=== PATIENT | female | born 1940 | race Caucasian/White ===

== ENCOUNTER 2023-07-19 08:22 | Outpatient (AMB) | payer MEDICARE, SELFPAY ==
--- NOTE | 2023-07-18 14:30 | A.OFFVIS_ITS ---
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
--- NOTE | 2023-07-18 14:30 | MHC.OFFVIS ---
Intake Intake Visit Reasons: E-EXHIBITION ORGANISER: Auditory and visual hallucinations-confirmed Allergies No Known Allergies Allergy (Verified 07/18/23 14:30) Coding
--- NOTE | 2023-07-19 08:23 | MHC.OFFVIS ---
Intake Vital Signs 07/19/23 08:24 Height 5 ft 5 in Weight 149 lb 4 oz BMI 24.8 BP 134/70 Blood Pressure Location Lt brachial Position Sitting Respiration 16 Pulse 72 Pulse Source Pulse Oximeter Pulse Oximetry (%) 94 Oxygen Delivery Method Room Air Intake Visit Reasons: E-SOCIAL INSURANCE ADVISER: Auditory and visual hallucinations-confirmed Intake Note: Pt presents to the office for a new pt evaluation for hallucinations. She is here with her daughter, Carmen. Daughter reports she has been having hallucinations and hearing music in my ears for about 8 months now. The daughter states her hallucinations started after a UTI and haven't fully resolved. Allergies No Known Allergies Allergy (Verified 07/19/23 08:24) Medication List - Last Reconciled 07/19/23 by Ivonne Sorensen MD acetaminophen 500 mg PO QID PRN amiodarone 200 mg PO DAILY amlodipine (Norvasc) 5 mg PO DAILY aspirin 81 mg PO DAILY atorvastatin 20 mg PO BEDTIME clobetasol 0.05% (Temovate) 1 appl topical BEDTIME gabapentin 300 mg PO DAILY HPI HPI Comments History of Present Illness Details 83y/o female comes here for evaluation of visual and auditory hallucinations. she is accompanied by her daughter Carmen. About 6 mths ago she started having visual hallucinations and auditory hallucinations. she was seeing people outside, visions of her son trying to choke her, seeing her daughter trying to shoot her, people trying to steal her car - mostly at night and evenings. she did not have insight into the hallucinations. she also heard music in her left ear. she was diagnosed with UTI and once she was treated her hallucinations decreased . Now she has rare hallucinations- once in 2 weeks she may see a cat or a flag etc. she has short term memory issues for over 1 year. Her mother had ALzheimers and thinks it is hereditary. she has word finding difficulty. she repeats questions. she forgets to turn off the TV or coffee pot etc. she lives with her daughter. she does not drive . she has trouble turning her head due to arthritis . she makes noises - almost like talking sleep and she also yells out when sleeping.Her daughter helps with some ADLS. [facility] Medical History (Updated 07/19/23 @ 16:12 by Iovnne Sorensen MD) Hallucinations Cognitive disorder Hyperlipidemia Diverticulosis Pulmonary nodules GERD (gastroesophageal reflux disease) Abdominal aortic aneurysm Dizziness Folic acid deficiency Aortic valve stenosis CVA (cerebral vascular accident) B12 deficiency Chronic headaches ICH (intracerebral hemorrhage) Breast cancer CAD (coronary artery disease) Mediastinal lymphadenopathy COPD (chronic obstructive pulmonary disease) Atrial fibrillation Nocturnal hypoxia Pulmonary fibrosis Heart block HTN (hypertension) Hypothyroidism Lichen planus Pacemaker Surgical History (Updated 07/19/23 @ 08:33 by Beverly Marquez CMA) H/O shoulder surgery H/O total hysterectomy History of open heart surgery Hx of cholecystectomy History of appendectomy Family History (Updated 07/19/23 @ 08:34 by Beverly Marquez CMA) Mother No problems noted. Brother No problems noted. Sister No problems noted. Social History (Updated 07/19/23 @ 08:35 by Beverly Marquez CMA) Household Members: None Housing: House Alcohol intake: current Patient Tobacco Use Status: Former Tobacco user Tobacco use type: Cigarette Physical Exam Vital Signs: Last Vital Signs Pulse 72 07/19/23 08:24 Resp 16 07/19/23 08:24 BP 134/70 07/19/23 08:24 Pulse Ox 94 07/19/23 08:24 Oxygen Delivery Method Room Air 07/19/23 08:24 BMI result Body Mass Index 24.8 Const General: cooperative, healthy appearing, comfortable and anxious Nutritional Appearance: average body habitus Orientation/consciousness: patient oriented x3 Eyes Pupils: Equal, round and reactive pupils present Neuro General: patient oriented x3, tone normal and moves all extremities Cranial nerves: Yes Equal, round and reactive pupils present, Yes Bilaterally intact EOM present, Yes Nystagmus not present, Yes Normal facial strength present, Yes Midline tongue present, Yes Symmetric palate elevation present and Yes Ability to bilaterally elevate shoulders present Cognition (Neuro): normal cognition Coordination: [id number] test normal Orientation What is the (year) (season) (date) (day) (month)?: year, season, date, day and month Where are we (state) (county) (town or city) (hospital) (floor)?: state, county, town or city, hospital/clinic and floor Registration Name of 3 unrelated objects clearly and slowly, then ask patient to repeat all 3 of them. (1st repeat determines score. Make sure they can repeat all three): object 1, object 2 and object 3 Attention & Calculation (CHOOSE ONE) Spell WORLD backwards (DLROW): 5 letters Recall Ask patient to repeat the 3 items from question #3.: object 1 Language Show patient a wristwatch & ask what it is. Repeat for pencil.: watch and pencil Ask the patient to repeat the phrase 'No ifs, ands, or buts' after you.: correct Ask the patient to 'take a piece of paper with their right hand' 'fold paper in half' 'place paper on floor': take paper in right hand and place paper on floor Print the sentence 'CLOSE YOUR EYES' on a piece. If patient actually closes eyes then score.: followed written direction Score Score: 25 Assessment & Plan Assessment & Plan (1) Cognitive disorder: Code(s): F09 - Unspecified mental disorder due to known physiological condition (2) Hallucinations: Code(s): R44.3 - Hallucinations, unspecified Plan SHe did well on MMSE She was anxious throughout this evaluation I will check him with CT brain Labs-ESR Vit B 12 TSH CMP CBC I will trial her on Buspar 5 mg bid Orders: Orders Erythrocyte Sedimentation Rate Today F09 - Unspecified mental disorder due to known physiological condition Complete Blood Count Auto Diff Today F09 - Unspecified mental disorder due to known physiological condition CT head/brain wo IV con Today R41.3 - Other amnesia Vitamin B12 and Folate Today F09 - Unspecified mental disorder due to known physiological condition TSH reflex Free T4 Today F09 - Unspecified mental disorder due to known physiological condition Comprehensive Met. Panel Today F09 - Unspecified mental disorder due to known physiological condition Medications: New buspirone 5 mg PO BID 60 tabs 3RF Coding Level of Care Code New Pt Level 4 (69983) Diagnoses Cognitive disorder F09 Hallucinations R44.3
[2023-07-19 08:24] VITALS: BP 134/70; PULSE 72; RESP 16; O2SAT 94; BMI 24.8
== END 2023-07-19 09:20 | disposition home or self-care (01) ==
PROVIDERS: PCP Internal Medicine; Visit Provider Psychiatry & Neurology Neurology
DX: R41.89 Other symptoms and signs involving cognitive functions and awareness (principal); R44.0 Auditory hallucinations; R44.1 Visual hallucinations
CPT/HCPCS: 99204

== ENCOUNTER → 2023-07-19 08:22 | Outpatient (BNVA) | payer MEDICARE, SELFPAY | PROVIDERS: PCP Internal Medicine; Visit Provider Psychiatry & Neurology Neurology | DX: F09 Unspecified mental disorder due to known physiological condition (principal); R44.3 Hallucinations, unspecified | CPT/HCPCS: 99202 ==

== ENCOUNTER 2024-01-17 07:31 | Outpatient (AMB) | payer MEDICARE, SELFPAY ==
--- NOTE | 2024-01-17 07:42 | MHC.OFFVIS ---
Vital Signs 01/17/24 07:43 Height 5 ft 5 in BP 88/58 L Blood Pressure Location Lt brachial Position Sitting Respiration 16 Pulse 78 Pulse Source Palpation Intake Visit Reasons: 6m f/u Auditory and -CONF Intake Note: Pt presents for 5 month follow up for cognitive disorder. Post Commander Required: No Allergies No Known Allergies Allergy (Verified 01/17/24 07:43) Medication List - Last Reconciled 01/17/24 by Ivonne Sorensen MD acetaminophen 500 mg PO QID PRN amiodarone 200 mg PO DAILY amlodipine (Norvasc) 5 mg PO DAILY aspirin 81 mg PO DAILY atorvastatin 20 mg PO BEDTIME buspirone 10 mg PO BID clobetasol 0.05% (Temovate) 1 appl topical BEDTIME docusate sodium (Stool Softener) 50 mg PO DAILY gabapentin 300 mg PO DAILY mecobalamin (vitamin B12) (B12 Active) 1,000 mcg PO DAILY oxycodone 5 mg PO BID PRN HPI Comments Details: 83y/o female comes here follow up of visual and auditory hallucinations. she is accompanied by her daughter Carmen. Her hallucinations have resolved- usually recurs when she has UTI. But her daughter reports strange behavior- put the blanket in the floor , says for people form cruise ship to walk .she seems more confused. she was recently diagnosed with Lung ca and she is starting immunotherapy. she has short term memory issues for over 1 year. Her mother had ALzheimers and thinks it is hereditary. she has word finding difficulty. she repeats questions. she forgets to turn off the TV or coffee pot etc. she lives with her daughter. she does not drive . she has trouble turning her head due to arthritis . she makes noises - almost like talking sleep and she also yells out when sleeping.Her daughter helps with some ADLS. [facility] Medical History Hallucinations Cognitive disorder Hyperlipidemia Diverticulosis Pulmonary nodules GERD (gastroesophageal reflux disease) Abdominal aortic aneurysm Dizziness Folic acid deficiency Aortic valve stenosis CVA (cerebral vascular accident) B12 deficiency Chronic headaches ICH (intracerebral hemorrhage) Breast cancer CAD (coronary artery disease) Mediastinal lymphadenopathy COPD (chronic obstructive pulmonary disease) Atrial fibrillation Nocturnal hypoxia Pulmonary fibrosis Heart block HTN (hypertension) Hypothyroidism Lichen planus Pacemaker Surgical History H/O shoulder surgery H/O total hysterectomy History of open heart surgery Hx of cholecystectomy History of appendectomy Family History Mother No problems noted. Brother No problems noted. Sister No problems noted. Social History Household Members: None Housing: House Alcohol intake: current Patient Tobacco Use Status: Former Tobacco user Tobacco use type: Cigarette Physical Exam Vital Signs: Last Vital Signs Pulse 78 01/17/24 07:43 Resp 16 01/17/24 07:43 BP 88/58 L 01/17/24 07:43 Const General: cooperative, healthy appearing, comfortable and anxious Nutritional Appearance: average body habitus Orientation/consciousness: patient oriented x3 Eyes Pupils: Equal, round and reactive pupils present Neuro Other: MOCA General: patient oriented x3, tone normal and moves all extremities Cranial nerves: Yes Equal, round and reactive pupils present, Yes Bilaterally intact EOM present, Yes Nystagmus not present, Yes Normal facial strength present, Yes Midline tongue present, Yes Symmetric palate elevation present and Yes Ability to bilaterally elevate shoulders present Cognition (Neuro): normal cognition Coordination: [id number] test normal Assessment & Plan Assessment & Plan (1) Cognitive disorder: Comment: MCI vs early dementia MOCA Code(s): F09 - Unspecified mental disorder due to known physiological condition Category: Medical (2) Hallucinations: Code(s): R44.3 - Hallucinations, unspecified Category: Medical Plan SHe did well on MMSE She was anxious throughout this evaluation Vit B 12 supplementation - declines injection I will trial her on Buspar 1- mg bid Declines meds for cognition Medications: New mecobalamin (vitamin B12) (B12 Active) 1,000 mcg PO DAILY 30 tabs 6RF Changed From buspirone 5 mg PO BID 60 tabs 3RF To buspirone 10 mg PO BID 180 tabs 3RF Coding Level of Care Code Est Pt Level 4 (88241) Diagnoses Cognitive disorder F09 Hallucinations R44.3
[2024-01-17 07:43] VITALS: BP 88/58; PULSE 78; RESP 16
== END 2024-01-17 09:38 | disposition home or self-care (01) ==
PROVIDERS: PCP Internal Medicine; Visit Provider Psychiatry & Neurology Neurology
DX: R41.89 Other symptoms and signs involving cognitive functions and awareness (principal); R44.3 Hallucinations, unspecified
CPT/HCPCS: 99214

== ENCOUNTER → 2024-01-17 07:31 | Outpatient (BNVA) | payer MEDICARE, SELFPAY | PROVIDERS: PCP Internal Medicine; Visit Provider Psychiatry & Neurology Neurology | DX: R41.3 Other amnesia (principal); R44.3 Hallucinations, unspecified; F09 Unspecified mental disorder due to known physiological condition | CPT/HCPCS: 99212 ==

== ENCOUNTER 2024-09-20 13:54 | Outpatient (AMB) | payer MEDICARE, SELFPAY ==
--- NOTE | 2024-09-20 14:08 | A.OFFVIS_ITS ---
Vital Signs 09/20/24 14:09 Height 5 ft 5 in Weight 120 lb BMI 20.0 BP 84/64 L Blood Pressure Location Rt brachial Position Sitting Intake Visit Reasons: Follow up Intake Note: Patient presents for follow up Allergies No Known Allergies Allergy (Verified 09/20/24 14:20) Medication List - Last Reconciled 09/20/24 by Ivonne Sorensen MD acetaminophen 500 mg PO QID PRN amiodarone 200 mg PO DAILY amlodipine (Norvasc) 5 mg PO DAILY aspirin 81 mg PO DAILY atorvastatin 20 mg PO BEDTIME buspirone 10 mg PO BID clobetasol 0.05% (Temovate) 1 appl topical BEDTIME docusate sodium (Stool Softener) 50 mg PO DAILY gabapentin 300 mg PO DAILY mecobalamin (vitamin B12) (B12 Active) 1,000 mcg PO DAILY oxycodone 5 mg PO BID PRN HPI Comments Details: 84y/o female comes here follow up of visual and auditory hallucinations. she is accompanied by her daughter Carmen. she was recently diagnosed with Lung ca and she is on immunotherapy.Her cognitive issues are mildly worse with immunotherapy.she has hallucinations and delusions - says there are guys making out in the back of a car . she use dto visit her neighbors but went to the wrong house.she is also sundowning. she has short term memory issues for over 2 yeas. Her mother had ALzheimers and thinks it is hereditary. she has word finding difficulty. she repeats questions. she forgets to turn off the TV or coffee pot etc. she lives with her daughter. she does not drive . she has trouble turning her head due to arthritis . she also yells out when sleeping.Her daughter helps with some ADLS. [facility] Medical History (Updated 09/20/24 @ 14:35 by Ivonne Sorensen MD) Delusions Hallucinations Cognitive disorder Hyperlipidemia Diverticulosis Pulmonary nodules GERD (gastroesophageal reflux disease) Abdominal aortic aneurysm Dizziness Folic acid deficiency Aortic valve stenosis CVA (cerebral vascular accident) B12 deficiency Chronic headaches ICH (intracerebral hemorrhage) Breast cancer CAD (coronary artery disease) Mediastinal lymphadenopathy COPD (chronic obstructive pulmonary disease) Atrial fibrillation Nocturnal hypoxia Pulmonary fibrosis Heart block HTN (hypertension) Hypothyroidism Lichen planus Pacemaker Surgical History H/O shoulder surgery H/O total hysterectomy History of open heart surgery Hx of cholecystectomy History of appendectomy Family History Mother No problems noted. Brother No problems noted. Sister No problems noted. Social History Household Members: None Housing: House Alcohol intake: current Patient Tobacco Use Status: Former Tobacco user Tobacco use type: Cigarette Physical Exam Vital Signs: Last Vital Signs BP 84/64 L 09/20/24 14:09 BMI result Body Mass Index 20.0 Const General: cooperative, healthy appearing, comfortable and anxious Nutritional Appearance: average body habitus Orientation/consciousness: patient oriented x3 Eyes Pupils: Equal, round and reactive pupils present Neuro General: patient oriented x3, tone normal and moves all extremities Cranial nerves: Yes Equal, round and reactive pupils present, Yes Bilaterally intact EOM present, Yes Nystagmus not present, Yes Normal facial strength present, Yes Midline tongue present, Yes Symmetric palate elevation present and Yes Ability to bilaterally elevate shoulders present Cognition (Neuro): abnormal cognition Coordination: [id number] test normal Psych Speech and movement: Pressured speech present and Psychomotor agitation in speech present Assessment & Plan Assessment & Plan (1) Cognitive disorder: Comment: dementia MOCA Code(s): F09 - Unspecified mental disorder due to known physiological condition Category: Medical (2) Hallucinations: Code(s): R44.3 - Hallucinations, unspecified Category: Medical (3) Delusions: Code(s): F22 - Delusional disorders Category: Medical Plan She was anxious throughout this evaluation Vit B 12 supplementation - declines injection I will trial her on memantine XR 7 mg qd Medications: New memantine 7 mg PO DAILY 30 ea 0RF Coding Level of Care Code Est Pt Level 4 (81779) Complex EM visit Add On G2211 Diagnoses Cognitive disorder F09 Hallucinations R44.3 Delusions F22
[2024-09-20 14:09] VITALS: BP 84/64
--- OUTSIDE RECORDS SUMMARY | 2024-09-20 15:25 | XMS_ITS ---
Author Name [facility] Organization Unknown History of Medication Use Medication Directions Dispensed Refills Start Date End Date Stat HYDROmorphone (DILAUDID) injection 0.2 mg 0.2 mg, Intravenous, Every 15 min PRN, moderate pain (4-6), Starting on [place] 11/16/23 at 1556, PACU/Phase 1FOR PACU USE ONLY.??If unable to take by mouth.??Do not exceed 2 mg.?? 11/19/2023 active Miconazole Nitrate 2 % AERP Used 2% powder twice a day for 10 days and as needed 11/19/2023 active gabapentin (NEURONTIN) 300 MG capsule TAKE ONE CAPSULE BY MOUTH TWICE DAILY 11/19/2023 active HYDROmorphone (DILAUDID) injection 0.5 mg 0.5 mg, Intravenous, Every 15 min PRN, severe pain (7-10), Starting on [place] 11/16/23 at 1556, PACU/Phase 1FOR PACU USE ONLY.??If unable to take by mouth.??Do not exceed 2 mg.?Administer IV push over 2-3 minutes. 11/19/2023 active atorvastatin (LIPITOR) tablet 10 mg Take 2 tablets (20 mg total) by mouth every evening. 11/19/2023 active amLODIPine (NORVASC) tablet 5 mg Take 1 tablet (5 mg total) by mouth daily. 11/19/2023 active HYDROmorphone (DILAUDID) injection 0.5 mg 0.5 mg, Intravenous, Every 15 min PRN, severe pain (7-10), Starting on [place] 11/16/23 at 1556, PACU/Phase 1FOR PACU USE ONLY.??If unable to take by mouth.??Do not exceed 2 mg.?Administer IV push over 2-3 minutes. 11/19/2023 active meperidine (DEMEROL) 25 MG/ML injection 12.5 mg 12.5 mg, Intravenous, Every 30 min PRN, shivering not due to postoperative hypothermia., Starting on [place] 11/16/23 at 1556, For 2 doses, PACU/Phase 1May repeat x 1 in 30 minutes. 11/19/2023 active dexamethasone (DECADRON) injection 4 mg 4 mg, Intravenous, Once as needed, other, nausea, vomiting, Starting on [place] 11/16/23 at 1556, For 1 dose, PACU/Phase 1Administer 2nd unless given in the OR if zofran is ineffective and patient continues to be symptomatic. 11/19/2023 active oxyCODONE (ROXICODONE) 5 MG immediate release tablet 5 mg 5 mg, Oral, Every 4 hours PRN, moderate pain (4-6), achieve pain scale less than or equal to 4, Starting on [place] 11/16/23 at 1556, For 2 doses, PACU/Phase 1Give when patient is able to take PO. 11/19/2023 active isosorbide dinitrate (ISORDIL) 30 MG tablet Take 2 tablets (60 mg total) by mouth 4 (four) times a day. 11/19/2023 active busPIRone (BUSPAR) 5 MG tablet Take 1 tablet (5 mg total) by mouth 3 (three) times a day. 11/19/2023 active ondansetron (ZOFRAN) injection 4 mg 4 mg, Intravenous, Once as needed, nausea, vomiting, Starting on [place] 11/16/23 at 1556, For 1 dose, PACU/Phase 1Administer 1st unless given in OR, then administer dexamethasone 11/19/2023 active losartan (COZAAR) tablet 25 mg Take 1 tablet (25 mg total) by mouth daily. 11/19/2023 active Cholecalciferol (vitamin D3) 10 MCG (400 UNIT) TABS Take by mouth. 11/19/2023 activ e Problems Problem Status Onset Date Problem Type Date of Resoluti on Source Lung nodules active 2023-10-30 ProblemAct [facility] Pain active EncounterDiagnosisAct CTTHSFRAN
== END 2024-09-20 14:40 | disposition home or self-care (01) ==
PROVIDERS: PCP Internal Medicine; Visit Provider Psychiatry & Neurology Neurology
DX: F22 Delusional disorders (principal); G31.84 Mild cognitive impairment of uncertain or unknown etiology
CPT/HCPCS: 99214; G2211

== ENCOUNTER → 2024-09-20 13:54 | Outpatient (BNVA) | payer MEDICARE, SELFPAY | PROVIDERS: PCP Internal Medicine; Visit Provider Psychiatry & Neurology Neurology | DX: F09 Unspecified mental disorder due to known physiological condition (principal); R44.3 Hallucinations, unspecified; F22 Delusional disorders | CPT/HCPCS: 99212 ==

== ENCOUNTER 2025-03-24 08:24 | Outpatient (AMB) | payer MEDICARE, SELFPAY ==
[2025-03-24 08:26] VITALS: BP 122/84; PULSE 82; O2SAT 98; BMI 21.0
--- NOTE | 2025-03-24 08:26 | MHC.OFFVIS ---
Vital Signs 03/24/25 08:26 Height 5 ft 5 in Weight 126 lb BMI 21.0 BP 122/84 Blood Pressure Location Rt brachial Position Sitting Pulse 82 Pulse Source Pulse Oximeter Pulse Oximetry (%) 98 Oxygen Delivery Method Room Air Intake Visit Reasons: Follow up Intake Note: Patient following up med trial memantine Allergies No Known Allergies Allergy (Verified 03/24/25 08:31) Medication List - Last Reconciled 03/24/25 by Ivonne Sorensen MD acetaminophen 500 mg PO QID PRN amiodarone 200 mg PO DAILY amlodipine (Norvasc) 5 mg PO DAILY aspirin 81 mg PO DAILY atorvastatin 20 mg PO BEDTIME buspirone 10 mg PO BID gabapentin 300 mg PO DAILY gabapentin 300 mg PO BID mecobalamin (vitamin B12) (B12 Active) 1,000 mcg PO DAILY memantine 14 mg PO DAILY HPI Comments Details: 84y/o female comes here follow up of visual and auditory hallucinations. she is accompanied by her daughter Carmen. Her cognitive issues are worse and has hallucinations and delusions - says there are guys making out in the back of a car she is more confused at night and has behavior issues. she is unable to sleep at night and can get aggressive with her daugter.she refuses help from senior services she has short term memory issues for over 3 yeas. Her mother had ALzheimers and thinks it is hereditary. she has word finding difficulty. she repeats questions. she forgets to turn off the TV or coffee pot etc. she lives with her daughter. she does not drive . she has trouble turning her head due to arthritis . she also yells out when sleeping.Her daughter helps with some ADLS. [facility] Medical History (Updated 03/24/25 @ 10:14 by Ivonne Sorensen MD) Alzheimer's dementia Delusions Hallucinations Cognitive disorder Hyperlipidemia Diverticulosis Pulmonary nodules GERD (gastroesophageal reflux disease) Abdominal aortic aneurysm Dizziness Folic acid deficiency Aortic valve stenosis CVA (cerebral vascular accident) B12 deficiency Chronic headaches ICH (intracerebral hemorrhage) Breast cancer CAD (coronary artery disease) Mediastinal lymphadenopathy COPD (chronic obstructive pulmonary disease) Atrial fibrillation Nocturnal hypoxia Pulmonary fibrosis Heart block HTN (hypertension) Hypothyroidism Lichen planus Pacemaker Surgical History H/O shoulder surgery H/O total hysterectomy History of open heart surgery Hx of cholecystectomy History of appendectomy Family History Mother No problems noted. Brother No problems noted. Sister No problems noted. Social History Household Members: None Housing: House Alcohol intake: current Patient Tobacco Use Status: Former Tobacco user Tobacco use type: Cigarette Physical Exam Vital Signs: Last Vital Signs Pulse 82 03/24/25 08:26 BP 122/84 03/24/25 08:26 Pulse Ox 98 03/24/25 08:26 Oxygen Delivery Method Room Air 03/24/25 08:26 BMI result Body Mass Index 21.0 Const General: cooperative, healthy appearing, comfortable and anxious Nutritional Appearance: average body habitus Orientation/consciousness: patient oriented x3 Eyes Pupils: Equal, round and reactive pupils present Neuro General: patient oriented x3, tone normal and moves all extremities Cranial nerves: Yes Equal, round and reactive pupils present, Yes Bilaterally intact EOM present, Yes Nystagmus not present, Yes Normal facial strength present, Yes Midline tongue present, Yes Symmetric palate elevation present and Yes Ability to bilaterally elevate shoulders present Cognition (Neuro): abnormal cognition Coordination: [id number] test normal Psych Speech and movement: Pressured speech present and Psychomotor agitation in speech present Assessment & Plan Assessment & Plan (1) Alzheimer's dementia: Code(s): G30.9 - Alzheimer's disease, unspecified; F02.80 - Dementia in other diseases classified elsewhere, unspecified severity, without behavioral disturbance, psychotic disturbance, mood disturbance, and anxiety Category: Medical (2) Hallucinations: Code(s): R44.3 - Hallucinations, unspecified Category: Medical (3) Delusions: Code(s): F22 - Delusional disorders Category: Medical Plan She was anxious throughout this evaluation Vit B 12 supplementation - declines injection Increase memantine XR 14 mg qd Increase gabapentin 300mg qam and 600mg qhs will consider quetiapine. Medications: New gabapentin 1 cap qam and 2 caps qhs 300 mg PO BID 90 caps 6RF Changed From memantine 7 mg PO DAILY 30 caps 0RF To memantine 14 mg PO DAILY 30 caps 6RF Coding Level of Care Code Est Pt Level 4 (19393) Diagnoses Alzheimer's dementia G30.9; F02.80 Hallucinations R44.3 Delusions F22
--- OUTSIDE RECORDS SUMMARY | 2025-03-24 08:34 | XMS_ITS ---
Author Organization [facility] Care Team Providers Care Partner Management Consultant Name Role Phone Jennifer Corrales Unavailable Unavailable [place], Steph Unavailable Unavailable Patricia Dennis Unavailable Unavailab Yuri Kauffman Unavailable Unavailable Abby, Williams Unavailable Unavailable Larry Buck Unavailable Unavailable Bonnie, Sobia Unavailable Unavailable Obdulio, Viktoria Unavailable Unavailable Melonie Parham Unavailable Unavailable Helder Chavarria Unavailable Unavailable Modesta, Eunice Unavailable Unavailable Nasser, Zidoon Unavailable Unavailable Allergies and adverse reactions Code CodeSystem Substance Reaction Severity StartDate Concern Status Pepper Unknown 05/09/2022 active Onion Unknown 05/09/2022 active Care Team Name Role Address Phone Organization [facility] Obdulio PCP [address], [place], [address], [place] (Office): [facility] 05/09/2022 - 05/19/2022 Jennifer Corrales [address], [place], [address], [place] (Office[place] : [facility] 05/09/2022 - 05/19/2022 Steph Severino [address] [facility] [address] [facility], [place], [address], [facility] (Office): [facility] 05/09/2022 - 05/19/2022 Patricia Dennis [address] [facility] [address] [facility], [place], [address], [facility] (Office): : [facility] 05/09/2022 - 05/19/2022 Yuri Ballard [address] [facility] [address] [facility], [place], [address], [place] (Office): [facility] 05/09/2022 - 05/19/2022 Williams Mora [address] [place], [address], [facility] (Office): : [facility] 05/09/2022 - 05/19/2022 Larry Buck [address] [place] [address] [address] [facility], [place], [address], [place] (Office): [facility] 05/09/2022 - 05/19/2022 Sobia Nicole [address] [place] [address], [address], [facility] (Office): : [facility] 05/09/2022 - 05/19/2022 Melonie Parham [address] [place] [address] [address] [facility], [place], [address], [place] (Office): [facility] 05/09/2022 - 05/19/2022 Helder Chavarria [address] [facility] [address], [place], [address], [place] (Office): [facility] 05/09/2022 - 05/19/2022 Eunice Byers [address] [place] [address] [address] [facility], [place], [address], [place] (Office): [facility] 05/09/2022 - 05/19/2022 Antonia Camara [address] [place] [address], [place], [address], [place] (Office): : [facility] 05/09/2022 - 05/19/2022 Immunizations Immunization Status Vaccine Details Vaccine Code CodeSystem Date Notes Influenza completed Influenza, split virus, trivalent, injectable, contains preservative 141 CVX created date: 05/10/2022 administer ed date: 06/03/2010 Pneumococcal Conjugate Vaccine (PCV13) completed pneumococcal conjugate vaccine, 13 valent 133 CVX created date: 05/10/2022 administer ed date: 05/10/2016 Pneumococcal Polysaccharide Vaccine (PPSV23) completed pneumococcal polysaccharide vaccine, 23 valent 33 CVX created date: 05/10/2022 administer ed date: 04/15/2008 TDAP( Tetanus/Diptheria/ Perutssis) completed tetanus and diphtheria toxoids, adsorbed, preservative free, for adult use, Lf unspecified 196 CVX created date: 05/10/2022 administer ed date: 05/05/2009 SARS-COV-2 (COVID-19) completed SARS-COV-2 (COVID-19) vaccine, vector non-replicating, recombinant spike protein-Ad26, preservative free, 0.5 mL lotNumber: [id number] Given 0.5 ml Left Deltoid intramuscularly Step 1 of Multi-step 212 CVX created date: 05/10/2022 administer ed date: 12/27/2020 SARS-COV-2 (COVID-19 BOOSTER) completed SARS-COV-2 (COVID-19) vaccine, vector non-replicating, recombinant spike protein-Ad26, preservative free, 0.5 mL lotNumber: [id number] Given 0.5 ml Left Deltoid intramuscularly 212 CVX created date: 05/10/2022 administer ed date: 10/10/2021 Medications Section Medication Name Status Code CodeSystem Dose Route Frequency Admin Type Sig Text Start Date End Date Fleet Enema Enema 7-19 GM/118ML active 030764 RXNORM 1 unit Rectal as needed PRN Insert 1 unit rectal ly every 24 hours as needed for Consti pation Use only if Bisaco dyl Suppos itory is ineffe ctive 2021 - Senna Tablet 8.6 MG active 087851 RXNORM 1 tablet Oral as needed PRN Give 1 tablet by mouth every 24 hours as needed for consti pation 2021 - Acetaminophen Tablet 325 MG active 150823 RXNORM 2 tablet Oral as needed PRN Give 2 tablet by mouth every 6 hours as needed for Pain Do not exceed 3 grams in 24 hours. T otal 650 mg AND Give 2 tablet by mouth every 6 hours as needed for Elevat ed temp >101 Do not exceed 3 grams in 24 hours. T otal 650 mg 2021 - 372806 RXNORM 2 tablet Oral as needed PRN Give 2 tablet by mouth every 6 hours as needed for Pain Do not exceed 3 grams in 24 hours. T otal 650 mg AND Give 2 tablet by mouth every 6 hours as needed for Elevat ed temp >101 Do not exceed 3 grams in 24 hours. T otal 650 mg 2021 - Cephalexin Tablet 500 MG active 294147 RXNORM 1 tablet Oral four times a day Routine Give 1 tablet by mouth four times a day for UTI 2021 - Nystatin Powder 769798 UNIT/GM active 386962 RXNORM n/a n/a Topical in the morning Routine Apply to Left breast topica lly in the mornin g for rash 2021 - Lipitor Tablet 20 MG active 979624 RXNORM 1 tablet Oral at bedtime Routine Give 1 tablet by mouth at bedtim e for hld 2021 - Aspirin Tablet Chewable 81 MG active 597875 RXNORM 1 tablet Oral one time a day Routine Give 1 tablet by mouth one time a day for cad 2021 - Gabapentin Capsule 300 MG active 748963 RXNORM 1 capsul e Oral two times a day Routine Give 1 capsul e by mouth two times a day for pain 2021 - Norvasc Tablet 5 MG active 389253 RXNORM 1 tablet Oral one time a day Routine Give 1 tablet by mouth one time a day for htn 2021 - Amiodarone HCl Tablet 200 MG active 668649 RXNORM 1 tablet Oral one time a day Routine Give 1 tablet by mouth one time a day for [place] 2021 - Mental Status Section Date Assessment Total Score Description 05/19/2022 BIMS 13 cognitively int act CAM 0 No delirium ind icated PHQ-9 12 moderate depres yesica 05/16/2022 BIMS 13 cognitively int act CAM 0 No delirium ind icated PHQ-9 12 moderate depres yesica Problems Problem # Description Date of onset Resolved Date Code CodeSystem Concern Status 1 ATHEROSCLEROTIC HEART DISEASE OF [place] CORONARY ARTERY WITHOUT ANGINA PECTORIS 05/09/[address] active 2 CHRONIC OBSTRUCTIVE PULMONARY DISEASE, UNSPECIFIED 05/09/[address] active 3 CHRONIC OBSTRUCTIVE PYELONEPHRITIS 05/09/[address] active 4 COVID-19 05/09/[address] active 5 DIFFICULTY IN WALKING, NOT ELSEWHERE CLASSIFIED 05/09/[address] active 6 ESSENTIAL (PRIMARY) HYPERTENSION 05/09/[address] active 7 GASTRO-ESOPHAGEAL REFLUX DISEASE WITHOUT ESOPHAGITIS 05/09/[address] active 8 HEMIPLEGIA AND HEMIPARESIS FOLLOWING CEREBRAL INFARCTION AFFECTING RIGHT DOMINANT SIDE 05/09/[address] active 9 HYPERLIPIDEMIA, UNSPECIFIED 05/09/[address] active 10 HYPOTHYROIDISM, UNSPECIFIED 05/09/[address] active 11 MUSCLE WEAKNESS (GENERALIZED) 05/09/[address] active 12 PERSONAL HISTORY OF TRANSIENT ISCHEMIC ATTACK (TIA), AND CEREBRAL INFARCTION WITHOUT RESIDUAL DEFICITS 05/09/[address] active 13 PNEUMONIA, UNSPECIFIED ORGANISM 05/09/[address] active 14 PRESENCE OF CARDIAC PACEMAKER 05/09/[address] active 15 UNSPECIFIED ATRIAL FIBRILLATION 05/09/[address] active 16 UNSTEADINESS ON FEET 05/09/[address] active 17 URINARY TRACT INFECTION, SITE NOT SPECIFIED 05/09/[address] active Reason for Referral No Reasons for Referral Entered Social History Social History Observation Description Start Date End Date Code Code System Current Smoking Status Tobacco smoking consumption unknown 014974393 SNOMED CT Sex Assigned At Female 1940 39128-6 [facility] Gender Identity Vital Signs Code Code System Vitals Name Values and Units Timing Information 9279-1 [facility] Respiratory Rate Value=18.0 Units=/m in 05/19/2022 8462-4 [facility] Blood Pressure-Diastolic Value=78 Un its=mmHg 05/19/2022 8480-6 [facility] Blood Pressure-Systolic Efxey=286 Un its=mmHg 05/19/2022 8310-5 [facility] Body Temperature Value=97.6 Units= F 05/19/2022 8867-4 [facility] Heart rate Value=68.0 Units=/min 09/2021 90871-3 [facility] O2 % BldC Oximetry Value=97.0 Units= % 05/19/2022 62045-1 [facility] Pain Level Value=1.0 05/19/2022 77576-2 [facility] Weight Yfkdt=188.0 Units=Lbs 8302-2 [facility] Height Value=65.0 Units=Inches 05/10/2022
--- OUTSIDE RECORDS SUMMARY | 2025-03-24 08:34 | XMS_ITS | Encounter Summary ---
Author Organization [place] [address] Care Team Providers Care Fire Technology Instructor Name Role Phone Jennifer Narayanan MD Primary Care Provider [phone] Encounter Details Date Type Department Care Team ([facility] st Contact Info) Description 02/19/2025 Telephone Adult Medicine [address] [phone] Charlotte Reynolds, HÉCTOR Social History Tobacco Use Types Packs/Day Years Used Date Smoking Tobacco: Every Day Cigarettes Last attempted to quit: 07/20/2003 Smokeless Tobacco: Never Alcohol Use Standard Drinks/Week Comments Yes 0 (1 standard drink = 0.6 oz pur e alcohol) Housing Instability Answer Date Recorde d Are you worried that in the next 2 months you may not have stable housing? No 08/28/2024 Food Access & Nutrition Answer Date Rec orded Do you have access to a vari ety of food including fruits and vegetables? Yes 08/28/2024 Access to Healthcare Answer Date Record ed Within the last 3 months, ho w many times did you visit the emergency department for your medical care? 1 08/28/2024 Health Literacy Answer Date Recorded How often do you need to hav e someone help you when you read instructions, pamphlets, or other written material from your doctor or pharmacy? Often 08/28/2024 Caregiver: How often do you need to have someone help you when you read instructions, pamphlets, or other written material from your doctor or pharmacy? Not on file 08/28/2024 Financial Risk Answer Date Recorded How hard is it for you to pa y for the very basics like food, housing, medical care, and air conditioning / heating? Not very hard 08/28/2024 Transportation Answer Date Recorded Has the lack of transportati on kept you from meetings, work, or from getting things needed for daily living? No Has the lack of transportati on kept you from medical appointments or from getting medications? No 08/28/2024 Social Isolation Answer Date Recorded How often do you feel lonely or isolated from those around you? Unable to respond 08/28/2024 Food Risk Answer Date Recorded Within the past 12 months we worried whether our food would run out before we got money to buy more. Never true 08/28/2024 Within the past 12 months th e food we bought just didn't last and we didn't have money to get more. Never true 08/28/2024 Dependent Care Answer Date Recorded Do you need help finding or paying for care for your loved ones. For example, child development assistant or elderly care for an older adult? No 08/28/2024 Education Answer Date Recorded Do you think completing more education or training, like finishing a GED, going to college, or learning a trade, would be helpful for you? No 08/28/2024 Employment and Income Answer Date Recor ded During the last four weeks, have you been actively looking for work? No 08/28/2024 Living Situation Answer Date Recorded What is your living situation? 1 10/29/2023 Interpersonal Safety Answer Date Record ed Physical Abuse 11/06/2024 Verbal Abuse 11/06/2024 Comments Unknown Sex and Gender Information Value Date Recorded Sex Assigned at Female 10/10/2024 8:09 AM EST Legal Sex Female 11:34 PM EST Gender Identity Female 10/10/2024 8:09 AM EST Sexual Orientation Straight 02/19/2025 8: 51 AM EDT documented as of this encounter Functional Status * Are you deaf or do you have serious difficulty hearing? Answer Date of Assessment Author No 11/05/2024 7:21 PM Sary Arredondo RN * Are you blind or do you have serious difficulty seeing, even when wearing glasses? Answer Date of Assessment Author No 11/05/2024 7:21 PM Sary Arredondo RN * Do you have serious difficulty walking or climbing stairs? Answer Date of Assessment Author Yes 11/05/2024 7:21 PM Sary Arredondo RN * Do you have serious difficulty dressing or bathing? Answer Date of Assessment Author Yes 11/05/2024 7:21 PM Sary Arredondo RN * Because of a physical, mental, or emotional condition, do you have serious difficulty doing errandsalone such as visiting the doctor? Answer Date of Assessment Author Yes 11/05/2024 7:21 PM Sary Arredondo RN documented as of this encounter Mental Status * Because of a physical, mental, or emotional condition, do you have serious difficulty concentrating, remembering, or making decisions? (5 years old or older) Answer Entry Date Author No 11/05/2024 7:21 PM Sary Arredondo RN documented in this encounter Progress Notes * Charlotte Reynolds RN - 02/19/2025 11:48 AM EDT Called and spoke to pt's daughter, Marisol, and an appointment was made for her to be seen in the office tomorrow at 10:15 am. She is in agreement with this plan. documented in this encounter Plan of Treatment Upcoming Encounters Date Type Department Care Team (Late st Contact Info) Description 04/02/2025 9:[address] [facility] [address] [place] [address] 05/05/2025 8:40 AM EDT Consult Gastroenterology - [place] [address] [facility] [address] [place] [phone] Adri Brasher NP [address] [address] 06/24/2025 8:30 AM EDT Office Visit [facility] Hematology Oncology [address] [place] [address] Tyshawn Simmons MD [address] [place] [address] 01/22/2026 9:00 AM EDT Ancillary Procedure [facility] [address] [facility] [address] [place] [address] documented as of this encounter Visit Diagnoses Not on filedocumented in this encounter Additional Health Concerns Infection Onset Date Last Indicated Resolved Time 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
--- OUTSIDE RECORDS SUMMARY | 2025-03-24 08:34 | XMS_ITS | Encounter Summary ---
Author Organization [facility] Address [address] [place] [address] Care Team Providers Care Supervisor Residential Name Role Phone Jennifer Narayanan MD Primary Care Provider [phone] Encounter Details Date Type Department Care Team Description 01/08/2024 Social Work [facility] Oncology Services [address] [place] [address] Romina Trivedi [facility] Social History Tobacco Use Types Packs/Day Years Used Date Smoking Tobacco: Every Day Cigarettes Smokeless Tobacco: Never Alcohol Use Standard Drinks/Week Comments Yes 0 (1 standard drink = 0.6 oz pur e alcohol) rare Sex and Gender Information Value Date Recorded Sex Assigned at Female 11/14/2023 4:00 PM EST Gender Identity Not on file Sexual Orientation Not on file Job Start Date Occupation Industry Not on file Not on file Not on file documented as of this encounter Functional Status Functional Status Response Date of Assess ment Pt deaf or have serious difficulty hearing? No 11/16/2023 Pt blind or have difficulty seeing, even with gl asses? No 11/16/2023 documented as of this encounter Plan of Treatment Not on file documented as of this encounter Visit Diagnoses Not on filedocumented in this encounter Care Teams Supervisor Residential Relationship Specialty Start Date End Date Jennifer Narayanan MD PCP - General Internal Medicine 11/22/23 documented as of this encounter
--- OUTSIDE RECORDS SUMMARY | 2025-03-24 08:34 | XMS_ITS ---
Author Name [facility] Organization Unknown History of Medication Use Medication Directions Dispensed Refills Start Date End Date Stat us HYDROmorphone (DILAUDID) injection 0.2 mg 0.2 mg, Intravenous, Every 15 min PRN, moderate pain (4-6), Starting on [place] 11/16/23 at 1556, PACU/Phase 1FOR PACU USE ONLY. If unable to take by mouth. Do not exceed 2 mg. 11/16/2023 active meperidine (DEMEROL) 25 MG/ML injection 12.5 mg 12.5 mg, Intravenous, Every 30 min PRN, shivering not due to postoperative hypothermia., Starting on [place] 11/16/23 at 1556, For 2 doses, PACU/Phase 1May repeat x 1 in 30 minutes. 11/16/2023 active busPIRone (BUSPAR) 5 MG tablet Take 1 tablet (5 mg total) by mouth 3 (three) times a day. active Problems Problem Status Onset Date Problem Type Date of Resoluti on Source Lung nodules active 2023-10-30 ProblemAct [facility] Pain active EncounterDiagnosisAct CTTHSFRAN Encounters Encounter Type Encounter Reason Primary Diagnosis Location Date Ambulatory Other nonspecific abnormal finding of lung field Other nonspecific abnormal finding of lung field [facility] [place] Care Team Organization Name Specialty Phone Email Start Date End Da te [facility] [place]2023 [facility] [place]/2023 [facility] 10/31/2023
== END 2025-03-24 09:06 | disposition home or self-care (01) ==
LOC: HO.HSMS 08:25
PROVIDERS: PCP Internal Medicine; Visit Provider Psychiatry & Neurology Neurology
DX: G30.9 Alzheimer's disease, unspecified (principal); F02.80 Dementia in other diseases classified elsewhere, unspecified severity, without behavioral disturbance, psychotic disturbance, mood disturbance, and anxiety; R44.3 Hallucinations, unspecified; F22 Delusional disorders
CPT/HCPCS: 99214

== ENCOUNTER → 2025-03-24 08:24 | Outpatient (BNVA) | payer MEDICARE, SELFPAY | PROVIDERS: PCP Internal Medicine; Visit Provider Psychiatry & Neurology Neurology | DX: R44.0 Auditory hallucinations (principal); R44.1 Visual hallucinations; G30.9 Alzheimer's disease, unspecified; F02.80 Dementia in other diseases classified elsewhere, unspecified severity, without behavioral disturbance, psychotic disturbance, mood disturbance, and anxiety; Z79.82 Long term (current) use of aspirin; Z79.899 Other long term (current) drug therapy | CPT/HCPCS: 99212 ==